=== PATIENT | female | born 1940 | race Caucasian/White ===

== ENCOUNTER 2018-07-29 07:10 | Inpatient (IN) | payer MEDICARE ==
[2018-07-29] MEDS ORDERED: Nitroglycerin 0.4 MG TAB 1 EACH ONE (07:33)
[2018-07-29] MEDS ORDERED: Aspirin Chewable 81 MG TAB ONE (07:33)
--- NOTE | 2018-07-29 07:47 | RAD ---
EXAM: Portable chest PROVIDED CLINICAL HISTORY: Chest pain COMPARISON: 07/23/2018 [facility] FINDINGS: Cardiac and mediastinal silhouette is within normal limits. Surgical clips overlie the right upper la teral hemithorax. Increased density overlying the right lateral chest wall in the upper lung zone appears similar to the prior examination and may reflect postsurgical change. Other etiologies includ ing infiltrate are not excluded. IMPRESSION: Stable radiographic appearance of the chest.
[2018-07-29 08:06] LABS: #Basophils 0.1 thou/uL (0.0-0.2); #Eosinphils 0.1 thou/uL (0.0-0.7); #Lymphocytes 2.1 thou/uL (1.20-3.40); #Monocytes 1.1 thou/uL (0.11-0.59); #Neutrophils 7.4 thou/uL (1.40-6.50); %Basophils 0.5 % (0.0-1.0); %Eosinophils 0.9 % (0.0-10.0); %Lymphocytes 19.4 % (21.0-51.0); %Monocytes 10.1 % (0.0-10.0); %Neutrophils 69.2 % (42.0-75.0); Hemoglobin 13.3 g/dL (12.0-16.0); Mean Corpuscular HGB CONC 33.8 g/dL (32.0-36.0); Mean Corpuscular Hemoglobin 31.7 pg (27.0-31.0); Mean Platelet Volume 7.2 fL (7.4-10.4); Platelet Count 277 thou/uL (130-400); RBC Distribution Width 13.1 % (11.5-14.5); Red Blood Cell (RBC) Count 4.19 mill/uL (4.20-5.40); White Blood Cell (WBC) Count 10.6 thou/uL (4.8-10.8)
[2018-07-29 08:28] LABS: ALT (SGPT) 14 U/L (8-55); AST (SGOT) 14 U/L (5-34); Albumin 3.8 g/dL (3.4-4.8); Alkaline Phosphatase 73 U/L (40-150); Anion Gap 15 mmol/L (10-20); BUN (Urea Nitrogen) 16 mg/dL (9.8-20.1); Bilirubin, Total 0.7 mg/dL (0.2-1.2); CK (CPK) 29 U/L (29-168); Calc. Creatinine Clearance 0 mL/min (70-130); Calcium 9.5 mg/dL (7.8-10.44); Carbon Dioxide 24 mmol/L (23-31); Chloride 101 mmol/L (98-107); Estimated GFR-MDRD 79; Globulin 2.5 g/dL (2.4-3.5); Glucose 111 mg/dL (83-110); Lipase 34 U/L (8-78); Potassium 3.3 mmol/L (3.5-5.1); Protein, Total 6.3 g/dL (6.0-8.3); Sodium 137 mmol/L (136-145)
--- NOTE | 2018-07-29 12:09 | NM ---
EXAM: NM Lung Vent Perf Imaging PROVIDED CLINICAL HISTORY: Chest pain COMPARISON: Chest radiograph performed concurrently FINDINGS: 6 mCi technetium 99m labeled MAA given intravenously. Patient was not able to tolerate ventilation imaging. There is no evidence for a segmental, pleural-based perfusion defect to suggest pulmonary embolus. IMPRESSION: As above.
--- NOTE | 2018-07-29 14:36 | HP ---
RESIDENT: Satish Beltrán MD. ATTENDING: Brian Pham MD PRIMARY CARE PHYSICIAN: Ag Valle MD CODE STATUS: Full. A long discussion was had with the patient regarding her code status and wishes. She states at this time she would like to have resuscitative measures taken, but would not like to undergo resuscitative measures for more than 10 minutes if ROSC was not achieved. CHIEF COMPLAINT: Chest pain. HISTORY OF PRESENT ILLNESS: Ms. Grant is a pleasant 78-year-old female with past medical history of hypertension, hyperlipidemia, ovarian cancer, and melanoma. She presented to the ER with a 2-hour history of chest pain that began at approximately 0500 hours on day of admission. She states that she has had intermittent pain overnight that started after she swallowed her evening gabapentin and Zoloft tablets at approximately 2100 hours. She states that she felt like the medication "got caught in my throat." She states that she vomited them up shortly thereafter, but has had a gas-like pressure sensation in her lower abdomen that radiates up to her neck behind her sternum ever since. She denies sharp pain, crushing pressure. She states that the pain improved in the ER with nitroglycerin and aspirin. She states at this time she still feels the need to belch, but is unable to. ER COURSE: While in the ER, the patient was seen and evaluated by Dr. Ryan Pitts. Routine labs were drawn and EKG was obtained. She received nitroglycerin 0.4 mg x3 and aspirin 324 mg x1. D-dimer was elevated, and the patient underwent a V/Q scan, which showed no evidence of pulmonary embolus. PAST MEDICAL HISTORY: 1. Melanoma, in remission. 2. Ovarian cancer, in remission. 3. Osteoarthritis of the hips. 4. Osteoarthritis of the knees. 5. Hypertension. 6. Hyperlipidemia. 7. Anxiety and depression. 8. Hypothyroidism. PAST SURGICAL HISTORY: 1. Hysterectomy. 2. Bilateral oophorectomy, indicated for ovarian cancer. 3. Melanoma excision with right axillary lymph node dissection. 4. Cataract surgery. 5. Bilateral total knee arthroplasty. ALLERGIES: NO KNOWN DRUG ALLERGIES. MEDICATIONS: 1. Iroquois 5 mg/325 mg q.6 hours p.r.n. 2. Zoloft 50 mg daily. 3. Gabapentin 300 mg b.i.d. 4. Hydrochlorothiazide 12.5 mg b.i.d. 5. Metoprolol succinate 50 mg b.i.d. 6. Amlodipine 2.5 mg daily. 7. Synthroid 100 mcg daily. SOCIAL HISTORY: The patient denies current or previous tobacco, alcohol, or illicit drug use. 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 REVIEW OF SYSTEMS: A 12-point review of systems was performed with pertinent positives and negatives listed in the history of present illness. All other review of systems was otherwise negative. PHYSICAL EXAMINATION: VITAL SIGNS: Blood pressure is 117/79, pulse 77, respiratory rate 20, temperature 97.8, pulse oximetry 96% on room air. Current weight is 77 kg. GENERAL: No acute distress. A and O x4. Pleasantly interactive. HEENT: Normocephalic and atraumatic. [place] and EOMI. Conjunctivae within normal limits. External ears and nose grossly normal. Moist mucous membranes present. No posterior pharyngeal erythema, swelling, or exudates. NECK: Supple without lymphadenopathy or thyromegaly. CARDIOVASCULAR: Normal rate and regular rhythm. No murmurs, rubs, or gallops appreciated. PULMONARY: Lungs are clear to auscultation bilaterally. No retractions. Normal effort. ABDOMEN: Soft with mild tenderness to palpation over the left abdomen, which the patient attributes to her chronic hip pain. She is mildly tender over the right upper quadrant, which she states is due to a recent shingles infection 6 weeks ago. EXTREMITIES: No clubbing, cyanosis, or edema noted. NEUROLOGIC: No gross focal deficits. There is a marked tremor in her right hand that worsens with movement. The patient states this is at her baseline. Cranial nerves 2 through 10 grossly intact. Sensation grossly normal. MUSCULOSKELETAL: No obvious defects. Grossly normal appearing. SKIN: Warm, dry, and intact without any obvious lesions. PSYCHIATRIC: Mood and affect are appropriate. The patient is decisional. LABORATORY DATA: CBC; white blood cell count 10.6, hemoglobin 13.3, hematocrit 39.4, MCV 94.0, RDW 13.1, platelets 277, and neutrophils 69%. Coagulation studies, D-dimer 3.27. CMP; sodium 137, potassium 3.3, chloride 101, bicarb 24, BUN 16, creatinine 0.72 , glucose 111, calcium 9.5, total bilirubin 0.7, AST 14, ALT 14, alkaline phosphatase 73, serum protein 6.3, albumin 3.8, and globulin 2.5. Cardiac markers, lipase 34. BNP 67.7. Troponin less than 0.010. IMAGING DATA: Reviewed by me. Chest x-ray shows no acute processes. There are surgical clips noted over the right axilla. V/Q scan, no evidence for segmental or pleural-based perfusion deficits suggestive of pulmonary embolus. EKG #1 obtained at 0715 hours; normal sinus rhythm, rate of 78, ID interval is 172, and QTc interval 440. There is a possible right bundle-branch block, most obvious in leads, in lead V1 and aVF. EKG #2 obtained at 1154 hours; normal sinus rhythm, rate of 69, normal intervals , same potential right bundle-branch block noted in the same leads. No obvious change. ASSESSMENT: Ms. Grant is a 78-year-old female with extensive past medical history of cancer, but no cardiac history. She presents with a 10-hour history of intermittent chest pain that acutely worsened 2 hours prior to arrival and it was relieved by nitroglycerin. PLAN: 1. Atypical chest pain, rule out ACS. At this time, knowing diagnosis is likely esophageal spasm. Troponins were negative x2; however, her HEART score is 4, prompting admission for observation. We will trend her troponins x3. Nitroglycerin available p.r.n. for chest pain. We will give her a GI cocktail to see if this aids in her chest pain. Continue telemetry monitoring. Given V/Q scan today, she will not be able to undergo NM stress testing tomorrow. 2. Hypokalemia. We will replace orally with 40 mEq of potassium. 3. Hypertension. Continue home medications. 4. Hyperlipidemia. Fasting lipid panel to be drawn tomorrow morning. 5. Hypothyroidism. We will check TSH as the patient says it has been at least 6 months since this was last evaluated. 6. History of ovarian cancer. Continue outpatient evaluation. 7. History of melanoma. Continue outpatient evaluation and observation. 8. Osteoarthritis. P.r.n. Iroquois per her home regimen. 9. Recent zoster infection. Continue gabapentin and [place] for pain management. 10. Prophylaxis; walking program, fall precautions. 11. Diet, heart healthy. 12. Code status, full. Please see the previous discussion for details regarding the patient's wishes. 13. Disposition and estimated length of stay; she was admitted under observation status, placed on the telemetry weighing length of stay likely less than 2 midnights. History and physical examination and management of the patient were discussed with Dr. Pham, who was in agreement with this plan unless otherwise stated in his history and physical. Job ID: [id number] MTDD
[2018-07-29] MEDS ORDERED: Nitroglycerin 0.4 MG TAB (25 Tab Bottle) SL PRN (14:43)
[2018-07-29] MEDS ORDERED: Ondansetron PF 4 MG/2 ML Vial IVP PRN (14:43)
[2018-07-29] MEDS ORDERED: Senokot S 8.6-50 MG TAB PO PRN (14:43)
[2018-07-29] MEDS ORDERED: Ondansetron ODT 4 MG TAB PO PRN (14:43)
[2018-07-29] MEDS ORDERED: Bisacodyl 5 MG TAB PO PRN (14:43)
[2018-07-29] MEDS ORDERED: Acetaminophen 650 MG Suppository PR PRN (14:43)
[2018-07-29] MEDS ORDERED: Calcium Carbonate 500 MG ChewTAB PO PRN (14:43)
[2018-07-29] MEDS ORDERED: Potassium Chloride 20 MEQ TAB PO SCH (15:00)
[2018-07-29 15:08] VITALS: BMI 32.1
[2018-07-29] MEDS: HYDROcodone/Acetaminophen 5/325 mg Tablet PO PRN (16:22)
[2018-07-29] MEDS ORDERED: Amlodipine 5 MG TAB PO SCH (16:30)
[2018-07-29] MEDS ORDERED: Gabapentin 300 MG CAP PO SCH (16:30)
[2018-07-29 16:45] LABS: Troponin I 0.011 ng/mL (< 0.028)
--- NOTE | 2018-07-29 17:33 | PDOC.EVN ---
Addendum - Attending - Attending Attestation Date/Time: 07/29/18 7337 I personally evaluated the patient and discussed the management with Dr. Beltrán I agree with the History, Examination, Assessment and Plan documented in separate document see Resident HX and PE for details with any addition or exceptions noted below. 78 yo pleasant female with PMHX HTN and dyslipidemia presents with retrosternal chest "knot feeling with radiation to base anterior neck no associated dyspnea or diaphoresis some nausea and describes dysphagia as well. EKG with partial BBB no EKG to compare initial troponin negative. Patient recently hospitalized with shingles right T5 dermatome tried lyrica now gabapentin and norco 5/325 qid prn. Patient had negative V/Q scan in ER department admit r/o ACS. hsistory melanoma currently in remission per patient followed by [facility] treated with surgery right posterior back lesion and right axilla lymph node dissection with positive followed up with XRT also complicated by recurrent mass to right axilla with chronic wound treated with wound vacuum and multiple HBOT. Patient also with ovarian CA s/p resection with history chemotherapy also followed [facility] and in remission per patient. Patient with known DJD s/p BTKR and tentatively planned for left hip replacement. Patient initially refusing further risk stratification however in view of future left hip replacement and anticipated need for surgical clearance she is agreeable to stress testing in am.
[2018-07-29] MEDS: Hydrochlorothiazide 25 MG TAB PO SCH (20:53)
[2018-07-29] MEDS: Gabapentin 300 MG CAP PO SCH (20:53)
[2018-07-30] MEDS: Levothyroxine Sodium 100 MCG TAB PO SCH (05:18)
[2018-07-30] MEDS: HYDROcodone/Acetaminophen 5/325 mg Tablet PO PRN ×2 (05:20→18:27)
[2018-07-30 05:50] LABS: Anion Gap 13 mmol/L (10-20); BUN (Urea Nitrogen) 15 mg/dL (9.8-20.1); Calc. Creatinine Clearance 83 mL/min (70-130); Calcium 9.6 mg/dL (7.8-10.44); Carbon Dioxide 27 mmol/L (23-31); Cardiac Risk 5.8 (Less than 4.5); Chloride 103 mmol/L (98-107); Cholesterol 173 mg/dl (< 200 Desired); Estimated GFR-MDRD 78; Glucose 117 mg/dL (83-110); HDL Cholesterol 30 mg/dL (>60 Neg Risk); LDL Cholesterol, Calculated 86 mg/dL; Potassium 3.3 mmol/L (3.5-5.1); Sodium 140 mmol/L (136-145); Triglycerides 285 mg/dL (Less than 150)
--- NOTE | 2018-07-30 06:31 | PDOC.FM ---
- Subjective Subjective: NAEO. Patient reports she did not have any chest pain overnight. Discussed draining wound in Right armpit, has been present for 6 months after resection of a lymph node. She is unable to walk and awaiting a hip replacement, but wound must be healed first. Otherwise patient is feeling well and has no concerns. - Objective Vital Signs & Weight: Vital Signs (12 hours) Temp Pulse Resp BP BP Pulse Ox 07/30/18 03:55 77 18 115/63 97 07/30/18 02:15 94 L 07/29/18 23:23 97.9 F 73 16 127/66 95 07/29/18 19:25 98.0 F 75 20 115/64 94 L Weight Weight 79.787 kg I&O: 07/28/18 07/29/18 07/30/18 06:59 06:59 06:59 Intake Total 240 Balance 240 Result Diagrams: 07/29/18 07:58 07/30/18 04:40 Phys Exam - Physical Examination Constitutional: NAD HEENT: PERRLA dry MMM Neck: no nodes, supple Respiratory: no wheezing, clear to auscultation bilateral Cardiovascular: RRR, no significant murmur sinus on tele monitoring overnight Gastrointestinal: soft, non-tender, no distention, positive bowel sounds Musculoskeletal: no edema, pulses present Neurological: non-focal, moves all 4 limbs Psychiatric: normal affect Skin: normal turgor, cap refill <2 seconds Deviation from normal: flat light purple macular rash over right chest under breast, tender -: ulcer under rt armpit, draining clear yellow fluid Dx/Plan (1) Atypical chest pain Code(s): R07.89 - OTHER CHEST PAIN Status: Acute (2) Hypokalemia Code(s): E87.6 - HYPOKALEMIA Status: Acute (3) HTN (hypertension) Code(s): I10 - ESSENTIAL (PRIMARY) HYPERTENSION Status: Chronic (4) HLD (hyperlipidemia) Code(s): E78.5 - HYPERLIPIDEMIA, UNSPECIFIED Status: Chronic (5) Hypothyroid Code(s): E03.9 - HYPOTHYROIDISM, UNSPECIFIED Status: Chronic (6) Shingles Code(s): B02.9 - ZOSTER WITHOUT COMPLICATIONS Status: Chronic (7) Ulcer Code(s): [id number] - Status: Acute - Plan Plan: Atypical chest pain -suspect esophageal spasm based on history -Trop neg x3 - D-dimer elevated, V/Q scan negative for PE - HEART score 4, Unable to stress today as s/p VQ scan - PRN nitro for chest pain - GI cocktail - no chest pain overnight Hypokalemia -K 3.3 this AM, check mag/phos, replace K as needed HTN -resume home meds HLD -FLP shows mildly elevated triglycerides, LDL mildly elevated and HDL low -not on atorvastatin -Patient is outside the window for ASCVD risk calculator, age 79 -Will discuss with patient further, shared decision making with patient Hypothyroid -TSH WNL Osteoarthritis -resume home norco Recent herpes-zoster infection -continue home gabapentin and norco Draining ulcer -Not erythematous, draining clear fluid -present for past 6 months, patient is following outpatient. This is the reason her hip surgery has been delayed. Diet: HH Dispo: likely home today, with follow up outpatient stress test. Addendum - Attending - Attending Attestation Date/Time: 07/30/18 1700 I personally evaluated the patient and discussed the management with Dr. Desai. I agree with the History, Examination, Assessment and Plan documented above with any addition or exceptions noted below. Pt cannot have a stress test today because of vq scan yesterday. She is wanting to go home. Pain was likely due to esophageal spasm. Will discuss case with pt's pcp and see if he feels comfortable setting up the stress as an outpt.
[2018-07-30 06:50] LABS: Magnesium 1.8 mg/dL (1.6-2.6); Phosphorus 3.2 mg/dL (2.3-4.7)
[2018-07-30] MEDS ORDERED: Potassium Chloride 20 MEQ in Premix Bag 1 BAG IVPB SCH (07:00)
[2018-07-30] MEDS: Amlodipine 5 MG TAB PO SCH (08:26)
[2018-07-30] MEDS: Hydrochlorothiazide 25 MG TAB PO SCH ×2 (08:27→20:26)
[2018-07-30] MEDS: Gabapentin 300 MG CAP PO SCH ×2 (08:27→20:26)
[2018-07-30] MEDS: Aspirin 325 mg Enteric Coated Tablet PO SCH (08:27)
[2018-07-30] MEDS ORDERED: Potassium Chloride 20 MEQ TAB PO SCH (09:00)
[2018-07-30] MEDS ORDERED: Bisacodyl 10 MG SUPP PR PRN (19:29)
[2018-07-31] MEDS: Levothyroxine Sodium 100 MCG TAB PO SCH (03:59)
--- NOTE | 2018-07-31 07:47 | PDOC.FM ---
- Subjective Subjective: Pt reports she did have a bowel movement with suppository overnight. Feeling well, no chest pain or SOB overnight. She is feeling somewhat anxious about the stress test. - Objective Vital Signs & Weight: Vital Signs (12 hours) Temp Pulse Resp BP Pulse Ox 07/31/18 03:59 97.9 F 70 16 124/72 96 07/30/18 20:00 99.0 F 77 12 124/65 93 L Weight Weight 79.787 kg I&O: 07/30/18 07/31/18 08/01/18 06:59 06:59 06:59 Intake Total 240 1040 Balance 240 1040 Result Diagrams: 07/29/18 07:58 07/31/18 07:49 Phys Exam - Physical Examination Constitutional: NAD HEENT: moist MMs Respiratory: no wheezing, clear to auscultation bilateral Cardiovascular: RRR, no significant murmur Gastrointestinal: soft, no distention, positive bowel sounds Musculoskeletal: no edema, pulses present Neurological: non-focal, moves all 4 limbs Psychiatric: normal affect Skin: normal turgor, cap refill <2 seconds Dx/Plan (1) Atypical chest pain Code(s): R07.89 - OTHER CHEST PAIN Status: Acute (2) Hypokalemia Code(s): E87.6 - HYPOKALEMIA Status: Acute (3) HTN (hypertension) Code(s): I10 - ESSENTIAL (PRIMARY) HYPERTENSION Status: Chronic (4) HLD (hyperlipidemia) Code(s): E78.5 - HYPERLIPIDEMIA, UNSPECIFIED Status: Chronic (5) Hypothyroid Code(s): E03.9 - HYPOTHYROIDISM, UNSPECIFIED Status: Chronic (6) Shingles Code(s): B02.9 - ZOSTER WITHOUT COMPLICATIONS Status: Chronic (7) Ulcer Code(s): [id number] - Status: Acute - Plan Plan: Atypical chest pain -suspect esophageal spasm based on history -Trop neg x3 - D-dimer elevated, V/Q scan negative for PE - HEART score 4, unable to stress yesterday 2/2 VQ scan - Discussed with PCP possibility of doing outpatient stress, he would like to do inpatient as patient is somewhat noncompliant and needs to be cleared for surgery - Stress ordered for this AM, BB held - PRN nitro for chest pain Hypokalemia, resolved - K>4 this am HTN -resume home meds HLD -FLP shows mildly elevated triglycerides, LDL mildly elevated and HDL low -Patient is outside the window for ASCVD risk calculator, age 79 - Discussed starting atorvastatin with patient and PCP, he wanted to further discuss with her outpatient Hypothyroid -TSH WNL Osteoarthritis -resume home norco Recent herpes-zoster infection -continue home gabapentin and norco Draining ulcer -Not erythematous, draining clear fluid Constipation, resolved -suppository given last evening Diet: Dispo: likely home today if stress is negative Addendum - Attending - Attending Attestation Date/Time: 07/31/18 1213 I personally evaluated the patient and discussed the management with Dr. Desai. I agree with the History, Examination, Assessment and Plan documented above with any addition or exceptions noted below.
[2018-07-31 08:23] LABS: Anion Gap 17 mmol/L (10-20); BUN (Urea Nitrogen) 17 mg/dL (9.8-20.1); Calc. Creatinine Clearance 85 mL/min (70-130); Calcium 9.4 mg/dL (7.8-10.44); Carbon Dioxide 18 mmol/L (23-31); Chloride 103 mmol/L (98-107); Estimated GFR-MDRD 80; Glucose 108 mg/dL (83-110); Potassium 4.3 mmol/L (3.5-5.1); Sodium 134 mmol/L (136-145)
[2018-07-31] MEDS ORDERED: ADENOSINE 60 MG/20 ML VIAL ONE (09:08)
[2018-07-31] MEDS: Amlodipine 5 MG TAB PO SCH (10:34)
[2018-07-31] MEDS: Aspirin 325 mg Enteric Coated Tablet PO SCH (10:34)
[2018-07-31] MEDS: Hydrochlorothiazide 25 MG TAB PO SCH ×2 (10:34→21:00)
[2018-07-31] MEDS: Gabapentin 300 MG CAP PO SCH ×2 (10:34→21:02)
[2018-07-31] MEDS: HYDROcodone/Acetaminophen 5/325 mg Tablet PO PRN ×2 (10:35→18:10)
[2018-07-31] MEDS: Acetaminophen 325 MG TAB PO PRN ×2 (12:41→18:10)
[2018-08-01] MEDS: Levothyroxine Sodium 100 MCG TAB PO SCH (06:07)
--- NOTE | 2018-08-01 08:16 | PDOC.FM ---
- Subjective Subjective: Patient denies chest pain or SOB this morning. NAEO. No concerns. - Objective Vital Signs & Weight: Vital Signs (12 hours) Temp Pulse Resp BP Pulse Ox 08/01/18 03:58 98.7 F 67 18 120/67 97 Weight Weight 82.372 kg I&O: 07/31/18 08/01/18 08/02/18 06:59 06:59 06:59 Intake Total 1040 1660 Balance 1040 1660 Result Diagrams: 07/29/18 07:58 07/31/18 07:49 Phys Exam - Physical Examination Constitutional: NAD HEENT: PERRLA, moist MMs, sclera anicteric Neck: no nodes, supple Respiratory: no wheezing, clear to auscultation bilateral Cardiovascular: RRR, no significant murmur Gastrointestinal: soft, non-tender, no distention, positive bowel sounds Musculoskeletal: no edema, pulses present Neurological: non-focal, moves all 4 limbs Psychiatric: normal affect Skin: no rash, normal turgor, cap refill <2 seconds Dx/Plan (1) Atypical chest pain Code(s): R07.89 - OTHER CHEST PAIN Status: Acute (2) Hypokalemia Code(s): E87.6 - HYPOKALEMIA Status: Acute (3) HTN (hypertension) Code(s): I10 - ESSENTIAL (PRIMARY) HYPERTENSION Status: Chronic (4) HLD (hyperlipidemia) Code(s): E78.5 - HYPERLIPIDEMIA, UNSPECIFIED Status: Chronic (5) Hypothyroid Code(s): E03.9 - HYPOTHYROIDISM, UNSPECIFIED Status: Chronic (6) Shingles Code(s): B02.9 - ZOSTER WITHOUT COMPLICATIONS Status: Chronic (7) Ulcer Code(s): [id number] - Status: Acute - Plan Plan: Atypical chest pain -suspect esophageal spasm based on history -Trop neg x3 - D-dimer elevated, V/Q scan negative for PE - HEART score 4, unable to stress yesterday 2/2 VQ scan - Discussed with PCP possibility of doing outpatient stress, he would like to do inpatient as patient is somewhat noncompliant and needs to be cleared for surgery - PRN nitro for chest pain - 2nd portion of stress to be completed this morning, likely discharge home today unless stress is abnormal. Hypokalemia, resolved - K now > 4 HTN -resume home meds HLD -FLP shows mildly elevated triglycerides, LDL mildly elevated and HDL low -Patient is outside the window for ASCVD risk calculator, age 79 - Discussed starting atorvastatin with patient and PCP, he wanted to further discuss with her outpatient Hypothyroid -TSH WNL Osteoarthritis -resume home norco Recent herpes-zoster infection -continue home gabapentin and norco Draining ulcer -Not erythematous, draining clear fluid Constipation, resolved -resolved with suppository Diet: Dispo: likely home today if stress is negative Addendum - Attending - Attending Attestation Date/Time: 08/01/18 1021 I personally evaluated the patient and discussed the management with Dr. Desai. I agree with the History, Examination, Assessment and Plan documented above with any addition or exceptions noted below.
--- NOTE | 2018-08-01 08:22 | NM ---
EXAM: Nuclear medicine cardiac perfusion examination with ejection fraction HISTORY: Chest pain and hypertension TECHNIQUE: Rest images: 33 mCi technetium 99m sestamibi Stress images: 32 mCi of technetium 9M sestamibi; Adenosine COMPARISON: None FINDINGS: Tomographic images: There is a large size, moderate intensity fixed perfusion defect in the anterior wall and apex. No reversible perfusion defects are seen. Gated images: Apical hypokinesis and ejection fraction of greater than 70%. EDV: 53 mL LHR: 0.3 IMPRESSION: 1. No evidence of ischemia 2. 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
[2018-08-01] MEDS: Amlodipine 5 MG TAB PO SCH (09:37)
[2018-08-01] MEDS: Hydrochlorothiazide 25 MG TAB PO SCH (09:38)
[2018-08-01] MEDS: Aspirin 325 mg Enteric Coated Tablet PO SCH (09:38)
[2018-08-01] MEDS: Gabapentin 300 MG CAP PO SCH (09:38)
[2018-08-01] MEDS: HYDROcodone/Acetaminophen 5/325 mg Tablet PO PRN (09:41)
[2018-08-01 12:06] VITALS: BP 126/68; TEMP 98
--- NOTE | 2018-08-03 09:24 | DIS ---
DATE OF ADMISSION: 08/01/2018 DATE OF DISCHARGE: 08/01/2018 RESIDENT: Seema Desai MD CONSULTS: None. PROCEDURES: Chest x-ray, 07/29/2018: Stable radiographic appearance of the chest. Pulmonary perfusion imaging, 07/29/2018: No evidence for a segmental pleural- based perfusion defect to suggest pulmonary embolus. Stress test, 07/31/2018, impression: No evidence of ischemia. 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 Apical hypokinesis and ejection fraction of greater than 70%. PRIMARY DIAGNOSIS: Atypical chest pain, likely secondary to esophageal spasm. SECONDARY DIAGNOSES: 1. Hypokalemia, resolved. 2. Hypertension. 3. Hyperlipidemia. 4. Hypothyroidism. 5. Osteoarthritis. 6. Postherpetic neuralgia. 7. Draining ulcer, chronic. 8. Constipation, resolved. DISCHARGE MEDICATIONS: 1. Hydrochlorothiazide 12.5 mg p.o. b.i.d. 2. Sertraline 50 mg p.o. at bedtime. 3. Gabapentin 300 mg p.o. b.i.d. 4. Toprol 50 mg p.o. b.i.d. 5. Levothyroxine 100 mcg p.o. daily. 6. Amlodipine 2.5 mg p.o. daily. 7. [place] 5/325 one tab p.o. q.6 hours p.r.n. for pain. DISCONTINUED MEDICATIONS: None. HISTORY OF PRESENT ILLNESS/HOSPITAL COURSE: This is a pleasant 78-year-old female who presents with a past medical history of hypertension, hyperlipidemia, ovarian cancer, and melanoma, presents to the ER with a 2-hour history of chest pain that began at 5:00 a.m. the day of admission. She states that she was having intermittent pain overnight that started after swallowing the evening, gabapentin and Zoloft tablets at approximately 9:00 p.m. She stated that she felt like medication got caught in her throat. She states that she vomited them up shortly afterward. She complained of a gas like pressure sensation in her lower abdomen that radiated up to her neck behind her sternum since that time. She denied sharp pain or crushing pressure. She states the pain improved in the ER with nitroglycerin and aspirin. She stated that at that time she felt the need to belch, but was unable to. In the ER, the patient had routine labs drawn. EKG was obtained. She received nitroglycerin 0.4 mg x3 and aspirin 324 mg. Her D-dimer was elevated and the patient underwent a V/Q scan, which showed no evidence of pulmonary embolus. Her troponins were negative x3. Her heart score was 4, so she was kept to do a stress test. The stress ended up being a 2-day test that she had to stay for both the testings. There was no evidence of ischemia on stress. There was a large fixed defect at the anterior wall or apex likely represented a remote infarction. Her ejection fraction was greater than 70%. No reversible perfusion defects were seen. The patient was also found to have hypokalemia of 3.3, which we repleted during her stay. Her TSH was also tested and was 2.195, within the normal range. Her BNP also is now elevated at 67.7. Fasting lipid panel showed mildly elevated triglyceride, elevated LDL and above HDL. The patient's age is outside the risk for ASCVD calculation of her risk. We discussed with the patient as well as the PCP considering starting atorvastatin. The patient will discuss with her PCP further outpatient. DISPOSITION: Stable. DISCHARGE INSTRUCTIONS: 1. Location: Home. 2. Diet: Heart healthy. 3. Activity: As tolerated. 4. Followup: Follow up with PCP, Dr. Valle within 1 week. Job ID: [id number] MTDD
--- NOTE | 2018-08-03 09:40 | EKG ---
Test Reason : CP Blood Pressure : / mmHG Vent. Rate : 078 BPM Atrial Rate : 078 BPM P-R Int : 172 ms QRS Dur : 082 ms QT Int : 386 ms P-R-T Axes : 025 021 009 degrees QTc Int : 440 ms Normal sinus rhythm Low voltage QRS Borderline ECG Confirmed by PETE SOUSA MD ([id number]), scientific editor NIRSEEN MARTINEZ ([id number]) on 08/03/2018 9:40:11 AM Referred By: Confirmed By:PETE SOUSA MD
--- NOTE | 2018-08-03 09:42 | EKG ---
Test Reason : Blood Pressure : / mmHG Vent. Rate : 069 BPM Atrial Rate : 069 BPM P-R Int : 176 ms QRS Dur : 084 ms QT Int : 404 ms P-R-T Axes : 019 031 012 degrees QTc Int : 432 ms Normal sinus rhythm Low voltage QRS Cannot rule out Anterior infarct , age undetermined Abnormal ECG #2 Confirmed by MERRY MENDOSA, PETE ([id number]), newspaper photo editor NISREEN MARTINEZ ([id number]) on 08/03/2018 9:41:32 AM Referred By: Confirmed By:PETE SOUSA MD
== END 2018-08-01 14:30 | disposition home or self-care (01) | DRG 392 ==
LOC: ERS 07:10 → 2SW 12:59 → OBSVTOIN 08-01 08:18
PROVIDERS: ADMIT Family Medicine; ATTEND Family Medicine
DX: K22.4 Dyskinesia of esophagus (principal); I10 Essential (primary) hypertension; E78.5 Hyperlipidemia, unspecified; M16.0 Bilateral primary osteoarthritis of hip; M17.0 Bilateral primary osteoarthritis of knee; F41.9 Anxiety disorder, unspecified; F32.9 Major depressive disorder, single episode, unspecified; E03.9 Hypothyroidism, unspecified; I45.10 Unspecified right bundle-branch block; E87.6 Hypokalemia; B02.9 Zoster without complications; Z85.43 Personal history of malignant neoplasm of ovary; Z85.820 Personal history of malignant melanoma of skin; Z90.710 Acquired absence of both cervix and uterus; Z79.899 Other long term (current) drug therapy
CPT/HCPCS: 36415; 71045; 78452; 78582; 80048; 80053; 80061; 82550; 83690; 83735; 83880; 84100; 84443; 84484; 85025; 85379; 93005; 93017; 94760; A9500; A9540; A9558; J0153; J2405; J3480

== ENCOUNTER 2019-10-09 11:23 | Outpatient (CLI) | payer MEDICARE ==
--- NOTE | 2019-10-09 12:02 | RAD ---
PA AND LATERAL CHEST: Date: 10/09/2019 HISTORY: Malignant neoplasm of ovary. COMPARISON: 07/23/2018 and 09/03/2018 chest exams. FINDINGS: Heart size is borderline. Aorta is tortuous. Chronic-appearing right mid and upper lung zone parenchy mal changes. Surgical clips overlie this area. Left lung is clear. IMPRESSION: Stable chronic change. POS: TONI
== END 2019-10-09 11:24 | disposition home or self-care (01) ==
LOC: BICRAD 11:23
PROVIDERS: ATTEND Internal Medicine Hematology & Oncology
DX: C56.9 Malignant neoplasm of unspecified ovary (principal)
CPT/HCPCS: 71046

== ENCOUNTER 2019-12-27 13:25 | Outpatient (CLI) | payer MEDICARE ==
--- NOTE | 2019-12-27 15:59 | MMO ---
Bilateral MAMMO Bilat Screen [facility]. CLINICAL HISTORY: Patient is 79 years old and is seen for screening. The patient has no family history of breast cancer. The patient has a history of ovarian cancer and melanoma. The patient has a history of Stereotatic Biopsy - benign and Ultrasound Guided Core Biopsy - benign. VIEWS: The views performed were: bilateral craniocaudal with tomosynthesis; bilateral mediolateral oblique with tomosynthesis; and left mediolateral oblique. FILMS COMPARED: The present examination has been compared to prior imaging studies performed at [facility] on 06/29/2016, 06/30/2017, 07/05/2018 and 07/06/2018. This study has been interpreted with the assistance of computer-aided detection. MAMMOGRAM FINDINGS: The breasts are heterogeneously dense, which could obscure a lesion on mammography. There are benign appearing calcifications seen in both breasts. Stable densities both breasts. There are no suspicious masses, suspicious calcifications, or new areas of architectural distortion. IMPRESSION: THERE IS NO MAMMOGRAPHIC EVIDENCE OF MALIGNANCY. A ROUTINE FOLLOW-UP MAMMOGRAM IN 1 YEAR IS RECOMMENDED. THE RESULTS OF THIS EXAM WERE SENT TO THE PATIENT. ACR BI-RADS Category 2 - Benign finding MAMMOGRAPHY NOTE: 1. A negative mammogram report should not delay a biopsy if a dominant of clinically suspicious mass is present. 2. Approximately 10% to 15% of breast cancers are not detected by mammography. 3. Adenosis and dense breasts may obscure an underlying neoplasm. Reported by: MINDY GR MD Electonically Signed: [id number]
== END 2019-12-27 13:26 | disposition home or self-care (01) ==
LOC: BICMAMMO 13:25
PROVIDERS: ATTEND Internal Medicine Hematology & Oncology
DX: Z12.31 Encounter for screening mammogram for malignant neoplasm of breast (principal); Z85.43 Personal history of malignant neoplasm of ovary; Z85.820 Personal history of malignant melanoma of skin; Z91.89 Other specified personal risk factors, not elsewhere classified
CPT/HCPCS: 77063; 77067